=== PATIENT | male | born 1950 | race Caucasian/White ===

== ENCOUNTER 2018-06-08 20:33 | Inpatient (IN) | payer MEDICARE, OTHER, SELFPAY ==
[2018-06-08 20:36] VITALS: BP 148/78; PULSE 87; RESP 16; TEMP 36.7; O2SAT 94
--- NOTE | 2018-06-08 21:35 | ED_ITS ---
HPI - Skin/Abscess/Foreign Bdy General Chief complaint: Skin/Abscess/Foreign Body Stated complaint: RIGHT HAND INFECTION FROM LACERATION Time Seen by Provider: 06/08/18 21:34 Source: patient Mode of arrival: ambulatory Limitations: no limitations History of Present Illness HPI narrative: Patient is a 67-year-old male here for evaluation of right hand infection. He states that a couple days ago he poked his right hand with a screw. He states that afterwards he did have some redness. He states that he did have a [id number] who is a physician and that grmbfhm-[id number] all ordered him Keflex. He states that he has taken 2 days of Keflex. He states the redness around the area has improved however he has now more swelling in his hand and also the back of his hand he thinks that his forearm has become red. No fevers. Does have some decreased range of motion to his thumb but he thinks this is secondary to the swelling. He states that earlier today he was able to express a significant amount of pus from the area. Related Data Home Medications Medication Instructions Recorded Confirmed aspirin 81 mg PO QDAY #0 05/01/17 06/08/18 insulin regular human [Humulin R 0 unit SQ #0 05/01/17 Regular U-100 Insuln] metformin [Glucophage] 500 mg PO BIDCC #0 05/01/17 simvastatin 20 mg PO HS #0 05/01/17 Allergies Allergy/AdvReac Type Severity Reaction Status Date / Time No Known Drug Allergies Allergy Unknown Verified 06/08/18 20:43 [NO KNOWN DRUG ALLERGIES] Review of Systems Constitutional Denies fever(s) Cardiovascular Denies chest pain and Denies dyspnea Respiratory Denies dyspnea Gastrointestinal Gastrointestinal: Denies abdominal pain, Denies nausea and Denies vomiting Musculoskeletal Denies myalgias and Denies arthralgias Comments: Decreased range of motion to right thumb secondary to swelling Integumentary/Breasts Comments: Redness to the palm of his right hand also the back of his right hand and the inside aspect of his right forearm Neurologic Comments: No numbness or tingling in the right hand Hematologic/Lymphatic Denies easy bleeding and Denies easy bruising FOR[facility]LY [facility] Medical History Diabetes (Acute) Surgical History No pertinent past surgical history (Acute) Social History household members: spouse Smoking Status: Never smoker Exam Initial Vital Signs Initial Vital Signs: Vital Signs Temperature 98.1 F 06/08/18 20:36 Pulse Rate 87 06/08/18 20:36 Respiratory Rate 16 06/08/18 20:36 Blood Pressure 148/78 H 06/08/18 20:36 Pulse Oximetry 94 06/08/18 20:36 Const General: cooperative, healthy appearing, comfortable, well developed, well groomed and No acute distress Orientation: alert, awake and oriented x3 HENMT Head: normal to inspection and normocephalic Resp Effort & Inspection: normal respiratory effort Cardio Rate: regular rate Skin Other: Patient with a 1/2 cm round area on the palmar aspect thenar eminence of the right hand consistent with his puncture wound. He does have surrounding erythema for approximately 2 cm. This has improved from a line that was drawn 2 days ago by the pharmacist. Patient also with swelling to the right hand. Does have redness on the dorsum aspect of his right hand on the radial aspect. He also has redness extending proximal to the wrist to mid forearm on the volar aspect. Neuro General: alert, awake and oriented x3 Sensory Exam: no sensory deficits noted Other: Sensation intact to light touch right hand Extrem Other: Patient with swelling to the base of the thumb of the right hand both on the palmar aspect and also on the dorsal aspect. Decreased range of motion at the MCP joint of the right thumb however not painful with movement. No IP joint pain with movement of the right thumb. The rest of his fingers are unremarkable. Full range of motion of the right wrist without pain. Right elbow unremarkable. Psych Appearance: grossly normal and well kempt Course Orders Ordered: ED Orders 06/08/18 21:43 XR hand RT min 3V Stat 06/08/18 22:30 Basic Metabolic Panel Stat C-Reactive Protein Quant Stat Complete Blood Count AUTO DIFF Stat Erythrocyte Sedimentation Rate Stat Lactate (Lactic Acid) Stat 06/08/18 22:33 Consult to Physician Routine 06/08/18 23:15 Wound Culture and Gram Stain Stat Wound Culture and Gram Stain Stat Morphine Sulfate (Morphine) 2 mg IV Q4HR PRN PRN Reason: Pain, Mild (1-3) Ondansetron HCl (Zofran) 4 mg IV Q4HR PRN PRN Reason: Nausea And Vomiting Discontinued Medications Piperacillin/Tazobactam/Dextrose (Zosyn) 3.375 gm in 50 mls @ 100 mls/hr IV NOW ONE Stop: 06/08/18 22:16 Last Admin: 06/08/18 23:16 Dose: Vancomycin HCl/Dextrose (Vancomycin) 1,000 mg in 200 mls @ 200 mls/hr IV NOW ONE Stop: 06/08/18 22:46 Last Admin: 06/08/18 23:41 Dose: 200 mls/hr Vital Signs - 8 hr 06/08/18 20:36 06/08/18 22:08 06/08/18 22:45 Temperature 98.1 F Pulse Rate 87 82 74 Respiratory Rate 16 15 16 Blood Pressure 148/78 H Blood Pressure [Left Arm] 147/73 H 146/72 H Pulse Oximetry 94 95 94 06/09/18 00:03 Temperature 98.1 F Pulse Rate 77 Respiratory Rate 18 Blood Pressure 151/85 H Blood Pressure [Left Arm] Pulse Oximetry 94 MDM - Skin/Abscess/Foreign Bdy Lab Data Attestation: I reviewed the patient's lab results. Result diagrams: 06/08/18 22:30 06/08/18 22:30 Lab Results 06/08/18 06/08/18 06/08/18 Range/Units 22:30 22:30 22:30 WBC 12.3 H (4.5-11.0) X10^3/uL RBC 4.78 (4.5-5.9) X10^6/uL Hgb 14.8 (13.5-17.5) g/dL Hct 42.9 (41-53) % MCV 89.9 (80-100) fL MCH 31.1 (26-34) PG MCHC 34.6 (30-36) % RDW 13.5 (11.6-14.8) % Plt Count 218 (150-400) X10^3/uL Neut % (Auto) 76.5 H (50-75) % Lymph % (Auto) 11.8 L (25-40) % [place] % (Auto) 9.5 (3-14) % Eos % (Auto) 1.6 L (2-4) % Baso % (Auto) 0.6 (0-2) % Neut # (Auto) 9400 H (5479-3921) /uL ESR 18 H (0-15) MM/HR Sodium 143 (137-145) mmol/L Potassium 5.0 (3.4-5.1) mmol/L Chloride 105 (98-107) mmol/L Carbon Dioxide 27 (22-32) mmol/L BUN 19 (9-20) mg/dL Creatinine 0.90 (0.66-1.25) mg/dL Estimated GFR > 60.0 (>60) mL/min BUN/Creatinine Ratio 21.1 (6-22) Glucose 216 H (80-110) mg/dL Lactate 2.0 (0.7-2.1) mmol/L Calcium 9.7 (8.4-10.2) mg/dL C-Reactive Protein (<1.0) mg/dL 06/08/18 Range/Units 22:30 WBC (4.5-11.0) X10^3/uL RBC (4.5-5.9) X10^6/uL Hgb (13.5-17.5) g/dL Hct (41-53) % MCV (80-100) fL MCH (26-34) PG MCHC (30-36) % RDW (11.6-14.8) % Plt Count (150-400) X10^3/uL Neut % (Auto) (50-75) % Lymph % (Auto) (25-40) % [place] % (Auto) (3-14) % Eos % (Auto) (2-4) % Baso % (Auto) (0-2) % Neut # (Auto) (2342-9867) /uL ESR (0-15) MM/HR Sodium (137-145) mmol/L Potassium (3.4-5.1) mmol/L Chloride (98-107) mmol/L Carbon Dioxide (22-32) mmol/L BUN (9-20) mg/dL Creatinine (0.66-1.25) mg/dL Estimated GFR (>60) mL/min BUN/Creatinine Ratio (6-22) Glucose (80-110) mg/dL Lactate (0.7-2.1) mmol/L Calcium (8.4-10.2) mg/dL C-Reactive Protein 6.0 H (<1.0) mg/dL Imaging Data X-ray hand: Attestation: I personally reviewed and interpreted this imaging study as follows: My impression: No fractures, no dislocations, does have a punctate superficial foreign body at the base of the thumb MDM Narrative Medical decision making narrative: Patient has been on Keflex for the past 2 days. He is well-appearing however does have an elevated white blood cell count. The redness that was outlined 2 days ago seems to have improved however does have swelling and also redness to the back of the right hand and extending proximal forearm. His physical exam is not consistent with a septic joint. Does have a punctate foreign body on the x-ray. I feel that exploring the wound to try to find this would cause more damage given the size of this foreign body. I was able to express a small amount of purulent material however the patient states that he was able to express a significant amount of purulent material earlier today. Given the fact that the patient is an insulin- dependent diabetic, symptoms seem to have been worsening over the past 2 days despite his oral Keflex and the worsening of the redness I feel that admission to the hospital for IV antibiotics is warranted. I discussed the case with Dr. Beth who accepts the patient. After discussion we will give the patient vancomycin IV here in the ER. I discussed the diagnosis with the patient. I discussed the plan to admit him to the hospital with the patient. He and his both expressed understanding and agreement with plan. Discharge Plan Departure Patient Disposition: Admitted As Inpatient Clinical Impression: Cellulitis Discharge Date/Time: 06/08/18 23:05 Interventions: ED Discharge Assessment Last Done: 06/08/18 23:00 Admit Date/Time: 06/08/18 22:36 Admit Provider: Otilio Beth
--- NOTE | 2018-06-08 21:43 | DI.RAD.S_ITS ---
PROCEDURE: XR HAND RT MIN 3V INDICATIONS: right hand infection TECHNIQUE: 3 views of the hand(s) acquired. COMPARISON: None. FINDINGS: Bones: No fractures or dislocations. Carpal bones are normally aligned. No suspicious bony lesions. Soft tissues: A punctate radiopaque metallic foreign body is present within the soft tissues of the thenar eminence. There is diffuse soft tissue swelling of the hand. IMPRESSION: Punctate radiopaque foreign body within the thenar eminence soft tissues and diffuse soft tissue swelling. No fracture or dislocation. Dictated by: Jennifer Everett M.D. on 06/09/2018 at 7:03 Approved by: Jennifer Everett M.D. on 06/09/2018 at 7:11
[2018-06-08 22:08] VITALS: BP 147/73; PULSE 82; RESP 15; O2SAT 95
[2018-06-08 22:44] LABS: Add Manual Diff / Slide Review NO; Basophils Percent Auto 0.6 % (0-2); Eosinophils Percent Auto 1.6 % (2-4); Hematocrit 42.9 % (41-53); Hemoglobin 14.8 g/dL (13.5-17.5); Lymphocytes Percent Auto 11.8 % (25-40); Mean Corpuscular HGB Conc 34.6 % (30-36); Mean Corpuscular Hemoglobin 31.1 PG (26-34); Mean Corpuscular Volume 89.9 fL (80-100); Monocytes Percent Auto 9.5 % (3-14); Neutrophils Absolute Auto 9400 /uL (3000-5900); Neutrophils Percent Auto 76.5 % (50-75); Platelet Count 218 X10^3/uL (150-400); Red Blood Cell Count 4.78 X10^6/uL (4.5-5.9); Red Cell Distribution Width 13.5 % (11.6-14.8); White Blood Cell Count 12.3 X10^3/uL (4.5-11.0)
[2018-06-08 22:45] VITALS: BP 146/72; PULSE 74; RESP 16; O2SAT 94
[2018-06-08 22:55] LABS: BUN Creatinine Ratio 21.1 (6-22); Blood Urea Nitrogen 19 mg/dL (9-20); Calcium 9.7 mg/dL (8.4-10.2); Carbon Dioxide 27 mmol/L (22-32); Chloride 105 mmol/L (98-107); Estimated Glomerular Filt Rate > 60.0 mL/min (>60); Glucose 216 mg/dL (80-110); HEMOLYSIS 38 (0-50); Sodium 143 mmol/L (137-145)
[2018-06-08 23:00] LABS: Erythrocyte Sedimentation Rate 18 MM/HR (0-15)
--- NOTE | 2018-06-08 23:21 | PC.NURSE ---
Pt to acute care from ER. Transferred via wheelchair. Ambulated to bathroom/bed. Steady gait. Right hand swollen, wound/red area previously marked. Wound culture collected/sent. Oriented to room/call light. Report given to NELLIE escalante RN.
[2018-06-08] MEDS: VANCOMYCIN 1,000 MG/200 ML FROZ.PIGGY 200 MG IV (23:41)
[2018-06-08 23:43] VITALS: BMI 31.2
[2018-06-09] VITALS (16 sets, daily range): BP systolic 123–155; BP diastolic 76–88; PULSE 60–84; RESP 12–97; TEMP 36.1–37.1; O2SAT 20–96; BMI 31.2
--- NOTE | 2018-06-09 01:26 | PC.NURSE ---
Pt. admitted from ER for Rt. hand cellulitis. wound culture collected by evening RN & Rudy infused after wound culture send to the lab. Pt. denies any pain to his rt. hand. Pt. oriented to his room, instructed to call for assistance if he needed to get up OOB. Call light within reached. Savanna rooming in & sleeping in the day bed. Will cont. POC & monitor.
[2018-06-09] MEDS: SODIUM CHLORIDE 0.9% FLUSH 10 ML IV ×2 (01:30→08:59)
--- NOTE | 2018-06-09 06:20 | PC.NURSE ---
Wound gram stain + cocci, placed pt. on isolation. But was not able to educate them about new lab. results & isolation precaution. Both patient & spouse are sound asleep. Will report to day RN.
--- NOTE | 2018-06-09 08:50 | P.CONS_ITS ---
History of Present Illness Date Patient Seen: 06/09/18 Time Patient Seen: 08:41 Chief complaint: RIGHT HAND INFECTION FROM LACERATION Reason for consult: Right hand infection Requesting provider: Otilio Beth Narrative: 67-year-old male with a right thumb infection. He was working on a deck and had a screw go into his right thenar eminence on Sunday. He was having some redness and his [id number] who is a physician put him on Keflex 2 days ago. Since then the swelling has gone down but he is now able to squeeze it and express pus. He came in the hospital because of this. [facility] Medical History Diabetes (Acute) Hyperlipidemia (Acute) Surgical History No pertinent past surgical history (Acute) Social History household members: spouse Smoking Status: Never smoker Meds Home Medications Medication Instructions Recorded Confirmed Type aspirin 81 mg PO QDAY #0 05/01/17 06/08/18 History insulin regular human [Humulin R 40 units SQ QD-BID #0 05/01/17 06/09/18 History Regular U-100 Insuln] metformin [Glucophage] 500 mg PO BIDCC #0 05/01/17 06/09/18 History simvastatin 20 mg PO HS #0 05/01/17 06/09/18 History Allergies Allergy/AdvReac Type Severity Reaction Status Date / Time No Known Drug Allergies Allergy Unknown Verified 06/08/18 20:43 [NO KNOWN DRUG ALLERGIES] Review of Systems Constitutional Constitutional: Denies chills and Denies fever(s) Cardiovascular Cardiovascular: Denies chest pain Respiratory Respiratory: Denies cough Gastrointestinal Gastrointestinal: Denies abdominal pain Musculoskeletal Musculoskeletal: Reports system reviewed; no additional complaints, except as documented Exam Vital Signs (past 8 hours): - 06/09/18 05:00 Temperature 97.6 F Pulse Rate 73 Respiratory Rate 16 Blood Pressure 136/79 Pulse Oximetry 95 Oxygen Delivery Method Room Air Const Orientation: alert and oriented x3 Extrem Other: Right hand swelling and erythema around the thenar eminence. There is a marker drawing from 2 days ago that is approximately 7 x 5 cm in size. The current redness and swelling is approximately 3 cm in the middle of this. Deep redness and swelling and tenderness in the middle for approximately 2 cm. Able to express purulence with squeezing out of puncture wound in the middle.. Pain- free range of motion of the thumb and fingers. Good capillary refill in the fingers. Objective Imaging Right hand x-ray: My impression: Thenar eminence swelling. Small 1 mm foreign body in this region. Labs Result Diagrams: 06/08/18 22:30 06/08/18 22:30 Labs: Laboratory Results - last 24 hr 06/08/18 06/08/18 06/08/18 22:30 22:30 22:30 WBC 12.3 H RBC 4.78 Hgb 14.8 Hct 42.9 MCV 89.9 MCH 31.1 MCHC 34.6 RDW 13.5 Plt Count 218 Neut % (Auto) 76.5 H Lymph % (Auto) 11.8 L [place] % (Auto) 9.5 Eos % (Auto) 1.6 L Baso % (Auto) 0.6 Neut # (Auto) 9400 H ESR 18 H Sodium 143 Potassium 5.0 Chloride 105 Carbon Dioxide 27 BUN 19 Creatinine 0.90 Estimated GFR > 60.0 BUN/Creatinine Ratio 21.1 Glucose 216 H Lactate 2.0 Calcium 9.7 C-Reactive Protein 06/08/18 22:30 WBC RBC Hgb Hct MCV MCH MCHC RDW Plt Count Neut % (Auto) Lymph % (Auto) [place] % (Auto) Eos % (Auto) Baso % (Auto) Neut # (Auto) ESR Sodium Potassium Chloride Carbon Dioxide BUN Creatinine Estimated GFR BUN/Creatinine Ratio Glucose Lactate Calcium C-Reactive Protein 6.0 H Assessment & Plan (1) Abscess of hand, right: Current visit: Yes Status: Acute Plan: Assessment/Plan Narrative: Looks likes most of the cellulitis is improving but he has a distinct area with an abscess over the thenar eminence that is actively draining. I recommend surgical debridement of this. He was hoping we could perhaps just mireille it in the room and let it drain out. However, I explained that if this tracks deep or proximally or we get into bleeding then I will need more control in the operating room. Unfortunately, he ate breakfast and we will need to wait for an 8 hr n.p.o. status. I explained to him that as he is not septic this is certainly something that can wait till later on in the day. He is on IV antibiotics currently. Risks and benefits of surgery were discussed including but not limited to medical with general anesthetic, ongoing infection, bleeding, scarring, blood vessel or nerve or tendon or muscle injury,, need for further surgery. We will plan on irrigation debridement of the right thenar eminence this this afternoon.
--- NOTE | 2018-06-09 08:54 | PM.HP.1 ---
History of Present Illness Date Patient Seen: 06/09/18 Time Patient Seen: 08:54 Chief complaint: RIGHT HAND INFECTION FROM LACERATION Narrative: Patient is a 67-year-old diabetic male who came into the emergency department after a puncture wound with a screw nail on June 05. He was working on his deck and punctured his right hand at the base of the thumb. The following morning he noticed swelling and redness in the area. He was also able to express some pus from the open wound. His [id number] prescribed Keflex which he started 2 days ago. He has not had fever or chills. However he has noticed progressive swelling and redness in the area. No fever or chills. The hand x-ray did show tiny retained foreign body in the thenar eminence. He denies history of heart problems or respiratory issues. Patient History Medical History Diabetes (Chronic) Hyperlipidemia (Chronic) Surgical History No pertinent past surgical history (Acute) Family & Social History Family History: Reviewed 06/09/18 by Otilio Beth MD Social History: household members spouse Prior Living Arrangements House Safety & Behavioral: Feels Safe in Current Yes Environment Been Physically Hurt or No Threatened By a Person Suicidal Ideation Description None Suicide Plan Description No Plan Tobacco & Substance use: Smoking Status Never smoker alcohol intake frequency a few times a month Substance Use Type does not use Meds Home Medications Medication Instructions Recorded Confirmed Type aspirin 81 mg PO QDAY #0 05/01/17 06/08/18 History metformin [Glucophage] 500 mg PO BIDCC #0 05/01/17 06/09/18 History simvastatin 20 mg PO HS #0 05/01/17 06/09/18 History insulin NPH and regular human 40 unit SUBCUT BIDWM 06/09/18 06/09/18 History [Humulin 70/30 U-100 Insulin] Allergies Allergy/AdvReac Type Severity Reaction Status Date / Time No Known Drug Allergies Allergy Unknown Verified 06/08/18 20:43 [NO KNOWN DRUG ALLERGIES] Review of Systems Review of Systems All systems reviewed & are unremarkable except as noted in HPI and below Exam Vital Signs (past 8 hours): - 06/09/18 05:00 06/09/18 07:35 Temperature 97.6 F 98.1 F Pulse Rate 73 72 Respiratory Rate 16 16 Blood Pressure 136/79 139/85 Pulse Oximetry 95 96 Oxygen Delivery Method Room Air Narrative Exam Narrative: GENERAL: This is an alert well-nourished, well-developed patient, in no apparent distress. HEAD: Atraumatic. Normocephalic. EYES: Pupils equal, round and reactive. Extraocular motions intact. No scleral icterus. No injection or drainage. OROPHARYNX: moist mucosa NECK: Trachea midline. No JVD or lymphadenopathy. CARDIOVASCULAR: Regular rate and rhythm without murmurs, gallops, or rubs. RESPIRATORY: Clear to auscultation bilaterally. GASTROINTESTINAL: Abdomen nondistended, soft, non-tender. No hepato-splenomegaly. EXTREMITIES: No pretibial edema. NEUROLOGICAL: Alert, well oriented, speech is intact, normal bilateral upper and lower extremity strength SKIN/musculoskeletal: There is localized swelling and fluctuance of the right thenar eminence. Pus is easily expressed out of small central opening in this area. There is no limitation of passive or active flexion of the fingers or thumb. No extension of redness to the wrist or other joints. Objective Imaging Right hand x-ray: Radiologist's impression: IMPRESSION: Punctate radiopaque foreign body within the thenar eminence soft tissues and diffuse soft tissue swelling. No fracture or dislocation. Labs Result Diagrams: 06/08/18 22:30 06/08/18 22:30 Labs: Laboratory Results - last 24 hr 06/08/18 06/08/18 06/08/18 22:30 22:30 22:30 WBC 12.3 H RBC 4.78 Hgb 14.8 Hct 42.9 MCV 89.9 MCH 31.1 MCHC 34.6 RDW 13.5 Plt Count 218 Neut % (Auto) 76.5 H Lymph % (Auto) 11.8 L [place] % (Auto) 9.5 Eos % (Auto) 1.6 L Baso % (Auto) 0.6 Neut # (Auto) 9400 H ESR 18 H Sodium 143 Potassium 5.0 Chloride 105 Carbon Dioxide 27 BUN 19 Creatinine 0.90 Estimated GFR > 60.0 BUN/Creatinine Ratio 21.1 Glucose 216 H Lactate 2.0 Calcium 9.7 C-Reactive Protein 06/08/18 22:30 WBC RBC Hgb Hct MCV MCH MCHC RDW Plt Count Neut % (Auto) Lymph % (Auto) [place] % (Auto) Eos % (Auto) Baso % (Auto) Neut # (Auto) ESR Sodium Potassium Chloride Carbon Dioxide BUN Creatinine Estimated GFR BUN/Creatinine Ratio Glucose Lactate Calcium C-Reactive Protein 6.0 H Assessment & Plan Plan: Assessment/Plan Narrative: 1. Right hand cellulitis/abscess: Patient was started on IV vancomycin overnight. Wound culture growing Gram-positive cocci. Dr. Barboza assessed patient and recommending incision and drainage of the abscess which is planned for this afternoon. Patient has no history of cardiac issues and is low risk for surgery. Continue vancomycin pending final culture results. 2. Diabetes, insulin requiring: Glucose 200 range on admission and this a.m.. Continue patient on insulin equivocal into his home dosing with addition of NovoLog sliding-scale. Continue metformin with meals. Continue his cholesterol drug and low-dose aspirin. Quality VTE Deep Vein Thrombosis/Pulmonary Embolism Present on Admission: No
--- NOTE | 2018-06-09 09:04 | P.HP_ITS ---
History of Present Illness Date Patient Seen: 06/09/18 Time Patient Seen: 08:54 Chief complaint: RIGHT HAND INFECTION FROM LACERATION Narrative: Patient is a 67-year-old diabetic male who came into the emergency department after a puncture wound with a screw nail on June 05. He was working on his deck and punctured his right hand at the base of the thumb. The following morning he noticed swelling and redness in the area. He was also able to express some pus from the open wound. His ceavifr-pe-kxe prescribed Keflex which he started 2 days ago. He has not had fever or chills. However he has noticed progressive swelling and redness in the area. No fever or chills. The hand x-ray did show tiny retained foreign body in the thenar eminence. He denies history of heart problems or respiratory issues. Patient History Medical History Diabetes (Chronic) Hyperlipidemia (Chronic) Surgical History No pertinent past surgical history (Acute) Family & Social History Family History: Reviewed 06/09/18 by Otilio Beth MD Social History: household members spouse Prior Living Arrangements House Safety & Behavioral: Feels Safe in Current Yes Environment Been Physically Hurt or No Threatened By a Person Suicidal Ideation Description None Suicide Plan Description No Plan Tobacco & Substance use: Smoking Status Never smoker alcohol intake frequency a few times a month Substance Use Type does not use Meds Home Medications Medication Instructions Recorded Confirmed Type aspirin 81 mg PO QDAY #0 05/01/17 06/08/18 History metformin [Glucophage] 500 mg PO BIDCC #0 05/01/17 06/09/18 History simvastatin 20 mg PO HS #0 05/01/17 06/09/18 History insulin NPH and regular human 40 unit SUBCUT BIDWM 06/09/18 06/09/18 History [Humulin 70/30 U-100 Insulin] Allergies Allergy/AdvReac Type Severity Reaction Status Date / Time No Known Drug Allergies Allergy Unknown Verified 06/08/18 20:43 [NO KNOWN DRUG ALLERGIES] Review of Systems Review of Systems All systems reviewed & are unremarkable except as noted in HPI and below Exam Vital Signs (past 8 hours): - 06/09/18 05:00 06/09/18 07:35 Temperature 97.6 F 98.1 F Pulse Rate 73 72 Respiratory Rate 16 16 Blood Pressure 136/79 139/85 Pulse Oximetry 95 96 Oxygen Delivery Method Room Air Narrative Exam Narrative: GENERAL: This is an alert well-nourished, well-developed patient , in no apparent distress. HEAD: Atraumatic. Normocephalic. EYES: Pupils equal, round and reactive. Extraocular motions intact. No scleral icterus. No injection or drainage. OROPHARYNX: moist mucosa NECK: Trachea midline. No JVD or lymphadenopathy. CARDIOVASCULAR: Regular rate and rhythm without murmurs, gallops, or rubs. RESPIRATORY: Clear to auscultation bilaterally. GASTROINTESTINAL: Abdomen nondistended, soft, non-tender. No hepato- splenomegaly. EXTREMITIES: No pretibial edema. NEUROLOGICAL: Alert, well oriented, speech is intact, normal bilateral upper and lower extremity strength SKIN/musculoskeletal: There is localized swelling and fluctuance of the right thenar eminence. Pus is easily expressed out of small central opening in this area. There is no limitation of passive or active flexion of the fingers or thumb. No extension of redness to the wrist or other joints. Objective Imaging Right hand x-ray: Radiologist's impression: IMPRESSION: Punctate radiopaque foreign body within the thenar eminence soft tissues and diffuse soft tissue swelling. No fracture or dislocation. Labs Result Diagrams: 06/08/18 22:30 06/08/18 22:30 Labs: Laboratory Results - last 24 hr 06/08/18 06/08/18 06/08/18 22:30 22:30 22:30 WBC 12.3 H RBC 4.78 Hgb 14.8 Hct 42.9 MCV 89.9 MCH 31.1 MCHC 34.6 RDW 13.5 Plt Count 218 Neut % (Auto) 76.5 H Lymph % (Auto) 11.8 L [place] % (Auto) 9.5 Eos % (Auto) 1.6 L Baso % (Auto) 0.6 Neut # (Auto) 9400 H ESR 18 H Sodium 143 Potassium 5.0 Chloride 105 Carbon Dioxide 27 BUN 19 Creatinine 0.90 Estimated GFR > 60.0 BUN/Creatinine Ratio 21.1 Glucose 216 H Lactate 2.0 Calcium 9.7 C-Reactive Protein 06/08/18 22:30 WBC RBC Hgb Hct MCV MCH MCHC RDW Plt Count Neut % (Auto) Lymph % (Auto) [place] % (Auto) Eos % (Auto) Baso % (Auto) Neut # (Auto) ESR Sodium Potassium Chloride Carbon Dioxide BUN Creatinine Estimated GFR BUN/Creatinine Ratio Glucose Lactate Calcium C-Reactive Protein 6.0 H Assessment & Plan Plan: Assessment/Plan Narrative: 1. Right hand cellulitis/abscess: Patient was started on IV vancomycin overnight. Wound culture growing Gram-positive cocci. Dr. Barboza assessed patient and recommending incision and drainage of the abscess which is planned for this afternoon. Patient has no history of cardiac issues and is low risk for surgery. Continue vancomycin pending final culture results. 2. Diabetes, insulin requiring: Glucose 200 range on admission and this a.m.. Continue patient on insulin equivocal into his home dosing with addition of NovoLog sliding-scale. Continue metformin with meals. Continue his cholesterol drug and low-dose aspirin. Quality VTE Deep Vein Thrombosis/Pulmonary Embolism Present on Admission: No
[2018-06-09] MEDS: VANCOMYCIN 1,500 MG in SODIUM CHLORIDE 0.9% 500 ML 333.333 ML IV ×2 (11:08→21:29)
[2018-06-09] MEDS: INSULIN GLARGINE 100 UNIT/ML 3ML PEN 30 UNIT SUBCUT (11:09)
--- NOTE | 2018-06-09 13:25 | PC.NURSE ---
day shift pt denies pain this shift. wound on hand is draining purulent serosang fluid. 4x4 dressing applied and secured with kerlix. vanco infusing without issue. pt NPO after breakfast this AM. started lantus insulin, 30 units given to pt as ordered. present at bedside. hourly rounding provided, call light within reach.
[2018-06-09] MEDS: LACTATED RINGERS 1,000 ML 42 ML IV (16:14)
--- NOTE | 2018-06-09 16:36 | PC.NURSE ---
Addendum entered by Hrotensia Ocampo R.N. 06/09/18 19:20: 1830- pt arrived back to room. vss. denies pain, and nausea. given pudding, and tolerated well. pt brought in [facility]. pt ate, will check bs at hs. Pt ambulatory, no dizziness- steady gait. encouraged to call if needing assistance. fluids started. will continue to monitor pt for safety. Original Note: Addendum entered by Hortensia Ocampo R.N. 06/09/18 16:39: belongings from pt given to prior to pt being taken to surgery. Original Note: Assumed care of pt from outgoing shift at 1500- Pt at bedside, pt compliant with nursing assessment, discussed surgery with pt. stephy from surgery in to get pt at 1555 and pt taken downstairs. went with. discussed isolation, discussed possible outcomes, pt ambulates steady gait in room, will continue to monitor pt for safety.
--- NOTE | 2018-06-09 17:04 | PM.PREOP ---
Pre-operative Note Interval Note Pre-op Check: Yes History & Physical Reviewed by Physician and Yes Exam Performed Changes: No
[2018-06-09] MEDS: CEFAZOLIN 2 GM/100 ML FROZ.PIGGY IV (17:22)
--- NOTE | 2018-06-09 17:48 | SUR.OPER ---
Supine on padded OR bed, head on pillow, left arm secured on padded arm boards at <90 degrees abduction, legs uncrossed, safety belt at thigh, tape over blanket over lower legs. right arm on sterile field
--- NOTE | 2018-06-09 18:02 | PM.OP.1 ---
Operative Date/Time/Diagnoses Date of procedure: 06/09/18 Time of procedure: 18:02 Pre-op diagnosis: Right hand puncture wound infection to thenar eminence Right hand abscess Post-op diagnosis: same Procedure & Clinicians Procedure: Irrigation and excisional debridement of right thenar eminence abscess Same procedure as scheduled: Yes Indications: 67-year-old male with a puncture wound to the right hand. He was admitted with draining pus. It was felt that he would require operative debridement. Risks and benefits of surgery were discussed and appropriate consent obtained. Surgeon: Alonso Barboza Click Yes if Unassisted: No Anesthesia Type: General Operative Notes Findings: None Closure Type: primary Specimen(s): other (Wound culture from hand) Estimated Blood Loss (mL): 5 Procedure in detail: Patient brought to the operating room and intubated on the table. Attention was turned towards the well-marked right head. A time-out was performed. Antibiotics were held. The right arm was prepped and draped in standard sterile fashion. A tourniquet had been placed on the arm but was never inflated. Marcaine was used for a radial wheal and some superficial block. We went along the skin fold made 2 cm incision over his draining open area. Purulent material was cultured and sent to microbiology. We then bluntly dissected and there was a deep cavity tracking 2 cm proximally and 1 cm deep. We bluntly spread and used a curette for sharp debridement through the muscle tissue and copiously irrigated. This did not appear to track distally. We brought in the mini C-arm to try to see if we could easily get the small foreign body. We advanced the hemostat but the foreign body sitting right where the neurovascular bundle would be and I did not feel this was a safe area to try to blindly remove the small particle and we elected to leave it. The wound was then copiously irrigated again. Iodoform gauze was placed in the wound. Nylon was used to loosely reapproximate the skin. Sterile dressing was placed. He was then extubated brought to recovery with no complications. Complications: none Condition: stable Disposition: PACU Plan for aftercare: Inpatient. Will need IV antibiotics. Awaiting culture results for final antibiotics. Plan to remove his packing on Sunday and probably discharge home on oral antibiotics.
[2018-06-09] MEDS: BUPIVACAINE 0.5% (PF) VIAL 30 ML INJ (18:09)
[2018-06-09] MEDS: SODIUM CHLORIDE 0.9% 1,000 ML, GENTAMICIN 80 MG IRR (18:09)
--- NOTE | 2018-06-09 18:14 | SUR.PHASEI ---
No glucose check need per Dr. Barboza
--- NOTE | 2018-06-09 18:18 | SUR.PHASEI ---
Report called to Az Thomson.
--- NOTE | 2018-06-09 18:39 | SUR.PHASEI ---
Pt transferred to the floor. Report to Alix. Ruth cdi. VS stable. IV saline locked. Spouse present
[2018-06-09] MEDS: LACTATED RINGERS 1,000 ML 125 ML IV (18:56)
[2018-06-09] MEDS: SIMVASTATIN 20 MG TABLET PO (21:29)
[2018-06-09] MEDS: DOCUSATE 100 MG CAPSULE PO (21:32)
--- NOTE | 2018-06-09 22:26 | PC.NURSE ---
Pt arrived back to floor at 1830. vss. denies pain. given chocolate pudding and pt ate without nausea. Pt's got [employer] for him. pt complaint with all assessments. PT uses call light. ambulatory in , able to manipulate IV pole without difficulty. will continue to monitor pt for safety.
[2018-06-10 05:00] VITALS: BP 136/89; PULSE 69; RESP 16; TEMP 36.5; O2SAT 92
[2018-06-10 05:49] LABS: Hemoglobin 13.9 g/dL (13.5-17.5); Mean Corpuscular HGB Conc 34.8 % (30-36); Mean Corpuscular Hemoglobin 31.5 PG (26-34); Mean Corpuscular Volume 90.4 fL (80-100); Platelet Count 229 X10^3/uL (150-400); Red Blood Cell Count 4.42 X10^6/uL (4.5-5.9); Red Cell Distribution Width 13.6 % (11.6-14.8); White Blood Cell Count 8.9 X10^3/uL (4.5-11.0)
--- NOTE | 2018-06-10 07:40 | PM.PNPO.1 ---
Subjective Date Patient Seen: 06/10/18 Time Patient Seen: 07:40 Interval history: Comfortable, better than before. Exam Vital Signs (past 8 hours): - 06/10/18 05:00 Temperature 97.7 F Pulse Rate 69 Respiratory Rate 16 Blood Pressure 136/89 Pulse Oximetry 92 Oxygen Delivery Method Room Air Oxygen Flow Rate 0 Const Orientation: alert and oriented x3 Extrem Other: R hand -dressing minimal dry drainage. good cap refill, easily wiggles fingers/thumb Objective Labs Result Diagrams: 06/10/18 05:23 06/08/18 22:30 Labs: Laboratory Results - last 24 hr 06/10/18 05:23 WBC 8.9 RBC 4.42 L Hgb 13.9 Hct 40.0 L MCV 90.4 MCH 31.5 MCHC 34.8 RDW 13.6 Plt Count 229 cx- staph aureus, sensitivities tomorrow Assessment & Plan Post-op Postoperative Procedures Operation Date: 06/09/18 16:00 Actual Procedures Side Surgeon p Incision and Drainage Right Thumb Right Alonso Barboza MD Doing well after washout of infected hand. Continue IV abx. Waiting on final cultures. Plan to remove packing tomorrow and probably DC on oral abx. Continue IV for now. Glucose elevated - expected with infection. back on normal insulin dosing as well. Quality VTE Deep Vein Thrombosis/Pulmonary Embolism Present on Admission: No
[2018-06-10 07:45] VITALS: BP 137/88; PULSE 70; RESP 16; TEMP 36.5; O2SAT 92
--- NOTE | 2018-06-10 09:00 | PT.IIE ---
Current Diagnoses Cutaneous abscess of right hand (06/08/18) Surgery Performed Operation Date: 06/09/18 16:00 Actual Procedures p Incision and Drainage Right Thumb(Right) - Alonso Barboza MD Surgical History (Last Reviewed 06/09/18 @ 08:57 by Otilio Beth MD) No pertinent past surgical history (Acute) Medical History (Last Reviewed 06/09/18 @ 08:57 by Otilio Beth MD) Diabetes (Chronic) Hyperlipidemia (Chronic) Physical Therapy Inpatient Evaluation/Re-Eval Medical Review Prior Functional Status Medical History Reviewed Yes Diet/Fluid Consistency Regular Communication no known deficits Mobility and Gait completely independent Activities of Daily Living and IADL's completely independent Social History Household Members spouse Living Arrangements House Physical Therapy Current Condition Current Condition Evaluation Date 06/10/18 Treatment Diagnosis R hand I&D of infected puncture wound Onset Date 06/05/18 Subjective Physical Therapy Visit Type Type Initial Evaluation Visit Start Time 08:30 Visit Stop Time 09:00 Total Visit Minutes 30 Physical Therapy Visit Comments Patient Comments Pt has no concerns about his mobility. Patient Goals go home once able PT-Bed Mobility Assessment Supine to Sit Supine to Sit Independent Sit to Supine Sit to Supine Independent Scooting Scooting to Edge of Bed Independent PT-Transfer Assessment Sit to and From Stand Sit to and from Stand Independent Equipment Transfer Assistive Device None Transfers Transfer Destination Bed Chair Transfer Technique walked Transfer Ability Level of Assist Independent Comments Mobility Comments very stable, no signs of LOB or difficulty Gait Assessment Gait Gait Assistance Required: Independent Assistive Devices Assistive Device None Gait Deviations General Gait Pattern Within Normal Limits Comments Gait Comments able to walk independently, also fine to walk and manage the IV pole without LOB or difficulty Stair Climbing Assessment Comments Stair Climbing Comments not formally tested, clinical estimate is ind PT-Balance Assessment Sitting Balance and Reactions Static Sitting Balance Ability Normal Dynamic Sitting Balance Ability Normal Standing Balance and Reactions Static Standing Balance Ability Normal Dynamic Standing Balance Ability Normal Orientation Orientation/Cognition Level of Alertness Alert Orientation Name Age Birthday Month Date Year Day of Week Place Situation Language Function Ability No Deficits Noted Safety Awareness Understands Safety Issues Memory Description No Deficits Noted Gross Range of Motion Upper Extremity ROM Assessment Within Functional Limits Lower Extremity ROM Assessment Within Functional Limits Strength Upper Extremity Strength Assessment Within Functional Limits Lower Extremity Strength Assessment Within Functional Limits Coordination Assessment Gross Coordination Gross Coordination WNL Physical Therapy Treatment Education Education Provided Safety PT Summary Assessment and Plan Potential Rehabilitation Potential Excellent Status of Condition at Evaluation Stable Summary Progress Towards Goals Safe For Discharge Assessment Summary Pt is s/p I&D of R hand for an infected puncture wound. Pt is completely independent with mobility, putting pt at his reported functional baseline. Pt is safe to discharge home once medically ready, has no DME or f/u therapy needs. Pt has no other acute PT goals/ needs, therefore, acute PT will sign off with the anticipation that pt will continue to mobilize with nursing encouragement until discharged from the hospital. Frequency of Treatment Frequency Of Treatment Discharge Recommendations To Nursing Amount of Assist Needed Independent Discharge Recommendations PT Discharge Recommendations Home
[2018-06-10] MEDS: SODIUM CHLORIDE 0.9% FLUSH 10 ML IV ×2 (09:22→21:28)
[2018-06-10] MEDS: ASPIRIN 81 MG TAB PO (09:23)
[2018-06-10] MEDS: METFORMIN HCL 500 MG TABLET PO ×2 (09:23→17:07)
[2018-06-10] MEDS: INSULIN NPH/REG 70-30 100 UNIT/ML 3ML VIAL 40 UNIT SUBCUT ×2 (09:24→17:05)
[2018-06-10] MEDS: DOCUSATE 100 MG CAPSULE PO ×2 (09:24→19:47)
[2018-06-10] MEDS: INSULIN ASPART 100 UNIT/ML INSULN PEN SUBCUT ×3 (09:27→17:04)
[2018-06-10] MEDS: VANCOMYCIN 1,500 MG in SODIUM CHLORIDE 0.9% 500 ML 333.333 ML IV ×2 (09:36→21:28)
[2018-06-10 11:28] VITALS: BP 142/101; PULSE 68; RESP 16; TEMP 36.3; O2SAT 93
--- NOTE | 2018-06-10 13:11 | PM.PN.1 ---
Subjective Date Patient Seen: 06/10/18 Interval history: Patient without complaints status post I and D of right hand abscess yesterday. Wound culture growing Staph aureus. Exam Vital Signs (past 8 hours): - 06/10/18 07:45 06/10/18 11:28 Temperature 97.7 F 97.4 F L Pulse Rate 70 68 Respiratory Rate 16 16 Blood Pressure 137/88 142/101 H Pulse Oximetry 92 93 Oxygen Delivery Method Room Air Oxygen Flow Rate 0 Narrative Exam Narrative: General: Alert, pleasant and cooperative and in no acute distress Extremities: Right hand postop dressing with mild oozing. Distal sensation and capillary refill intact. Objective Labs Result Diagrams: 06/10/18 05:23 06/08/18 22:30 Labs: Laboratory Results - last 24 hr 06/10/18 05:23 WBC 8.9 RBC 4.42 L Hgb 13.9 Hct 40.0 L MCV 90.4 MCH 31.5 MCHC 34.8 RDW 13.6 Plt Count 229 Assessment & Plan Plan: Assessment/Plan Narrative: 1. Right hand cellulitis/abscess: Patient is stable status post I&D by . Continue IV vancomycin for Staph aureus growing in wound culture, final ID pending. Most likely patient will be able to discharge home tomorrow, Sunday, on oral antibiotic. He will need wound packing removed by Ortho prior to discharge. 2. Diabetes, insulin requiring: Glucose remaining 200-250 range probably due to infection. Continue patient on insulin equivalent to his home dosing with addition of NovoLog sliding-scale. Continue metformin with meals. Continue his cholesterol drug and low-dose aspirin. Quality VTE Deep Vein Thrombosis/Pulmonary Embolism Present on Admission: No
[2018-06-10 16:30] VITALS: BP 144/72; PULSE 69; RESP 16; TEMP 36.5; O2SAT 93
[2018-06-10 19:30] VITALS: BP 139/89; PULSE 69; RESP 18; TEMP 36.3; O2SAT 93
[2018-06-10] MEDS: SIMVASTATIN 20 MG TABLET PO (19:47)
--- NOTE | 2018-06-10 19:58 | PC.NURSE ---
Shift note: Antonio resting in bed, rates right hand pain 2, denies need for medication. Took off his own surgical drsg, saying it was itching. Gauze drsg reapplied to right hand, packing still in place. Small amt of sero-sang drainage to old drsg. He asked me can't we pull this out? pointing to IV. I explained rationale for IV and IV Vanco, he is aware that med is ordered for 10 am and 10 pm and that final wound culture should come tomorrow. Ox3 and using call button appropriately. VS stable. CBG tonight 137, HS snack given per his request.
[2018-06-11 01:00] VITALS: BP 121/63; PULSE 61; RESP 18; TEMP 36.6; O2SAT 96
[2018-06-11 05:20] VITALS: BP 132/86; PULSE 63; RESP 16; TEMP 36.5; O2SAT 96
--- NOTE | 2018-06-11 07:31 | P.PN_ITS ---
Subjective Date Patient Seen: 06/11/18 Time Patient Seen: 07:30 Interval history: Doing well. Minimal discomfort Exam Vital Signs (past 8 hours): - 06/11/18 01:00 06/11/18 05:20 Temperature 97.9 F 97.7 F Pulse Rate 61 63 Respiratory Rate 18 16 Blood Pressure 121/63 132/86 Pulse Oximetry 96 96 Oxygen Delivery Method Room Air Oxygen Flow Rate 0 Const Orientation: alert and oriented x3 Extrem Other: Right hand-dressing changed and packing removed. No more erythema. No drainage. Good cap refill distally. Objective Labs Result Diagrams: 06/10/18 05:23 06/08/18 22:30 Labs: Glucose fingerstick up to 248 Culture Staph aureus sensitive to everything except for tetracyclines Assessment & Plan Post-op Postoperative Procedures Operation Date: 06/09/18 16:00 Actual Procedures Side Surgeon p Incision and Drainage Right Thumb Right Alonso Barboza MD he has sensitive Staph aureus. I am fine with sending him home today on Keflex. His glucose is elevated and he will need to do closer monitoring of his blood sugars and managing his diabetes until the infection resolves. He lives in [place] and is going home Sunday. He will follow up with his primary care physician. Quality VTE Deep Vein Thrombosis/Pulmonary Embolism Present on Admission: No
--- NOTE | 2018-06-11 07:33 | PM.DS.1 ---
History of Present Illness Date Patient Seen: 06/11/18 Time Patient Seen: 07:33 Chief complaint: RIGHT HAND INFECTION FROM LACERATION Narrative: 67-year-old male admitted with a right hand abscess Discharge Providers Date of admission: 06/08/18 22:36 Consults: 06/08/18 22:33 Consult to Physician Routine Comment: Consulting Provider: Otilio Beth Reason for consultation: admisson Has provider been notified: Yes 06/09/18 08:24 Consult to Orthopedic Surgery Routine Comment: Consulting Provider: Alonso Barboza Reason for consultation: hand cellulitis, foreign body Has provider been notified: Yes 06/09/18 18:43 Consult to Discharge Planning Routine Comment: Consult to Physical Therapy Evaluate & Treat Comment: Physician Instructions: Evaluate and Treat Consult to Physician Routine Comment: Consulting Provider: Alonso Barboza Reason for consultation: R hand infection Has provider been notified: Yes Consult to Respiratory Therapy Evaluate & Treat Comment: Physician Instructions: Evaluate and treat Discharge provider: Alonso Barboza MD Summary Discharge Diagnosis: Right hand abscess Hospital Course: He was admitted and brought to the operating room on 06/09/2018 where he underwent irrigation debridement of his right hand thenar eminence abscess. He did very well postoperatively. He had his dressing changed and packing removed on postop day 2 and everything looked clean. He grew out pansensitive Staph aureus and will be discharged on Keflex. He lives in [place] and is returning tomorrow and will follow up with his primary care for physician next week. Exam Vital Signs (past 8 hours): - 06/11/18 01:00 06/11/18 05:20 Temperature 97.9 F 97.7 F Pulse Rate 61 63 Respiratory Rate 18 16 Blood Pressure 121/63 132/86 Pulse Oximetry 96 96 Oxygen Delivery Method Room Air Oxygen Flow Rate 0 Const Orientation: alert and oriented x3 Extrem Other: Right hand wound clean dry intact Objective Labs Result Diagrams: 06/10/18 05:23 06/08/18 22:30 Discharge Plan Discharge Plan Patient Disposition: Home Discharge comment: Follow-up with primary care physician in 1 week Discharge Med Rec/Prescriptions Prescriptions: New cephalexin [Keflex] 500 mg capsule 500 mg PO QID Qty: 40 RF: 0 Continue metformin [Glucophage] 500 MG tablet 500 mg PO BIDCC Qty: 0 RF: 0 simvastatin 20 MG tablet 20 mg PO HS Qty: 0 RF: 0 aspirin 81 MG tablet,chewable 81 mg PO QDAY Qty: 0 RF: 0 insulin NPH and regular human [Humulin 70/30 U-100 Insulin] 100 unit/mL (70-30) Suspension 40 unit SUBCUT BIDWM RF: 0 Provider Discharge Instructions Diet: Carb-consistent/Diabetic Skin/Wound/Dressing Care Dressing: Keep dressing dry and intact. Discharge Data Attending Provider: Otilio Beth Admit Date/Time: 06/08/18 22:36 Quality VTE Deep Vein Thrombosis/Pulmonary Embolism Present on Admission: No
[2018-06-11 07:50] VITALS: BP 149/89; PULSE 70; RESP 16; TEMP 36.4; O2SAT 95
[2018-06-11] MEDS: METFORMIN HCL 500 MG TABLET PO (08:54)
[2018-06-11] MEDS: ASPIRIN 81 MG TAB PO (08:54)
[2018-06-11] MEDS: INSULIN NPH/REG 70-30 100 UNIT/ML 3ML VIAL 40 UNIT SUBCUT (08:54)
[2018-06-11] MEDS: DOCUSATE 100 MG CAPSULE PO (08:54)
--- NOTE | 2018-06-11 09:20 | PC.NURSE ---
discharge note Pt is a&o able to make needs known, reviewed d/c instructions with pt at bedside, reviewed s/sx infection, follow up with pcp in 1 week, if signs worsen be seen immediately, reviewed s/sx of stroke, reviewed medications with last dose, reviewed new abx script and that he needs to have it filled. pt ambulated to emergency exit with this rn for casi loretta to catch the [id number]. anwsered all questions and concerns.
--- NOTE | 2018-06-11 15:46 | PM.PN.1 ---
Subjective Date Patient Seen: 06/11/18 Interval history: No complaints. Patient is ready for discharge home. [place] am ferry Exam Vital Signs (past 8 hours): - 06/11/18 07:50 Temperature 97.5 F L Pulse Rate 70 Respiratory Rate 16 Blood Pressure 149/89 H Pulse Oximetry 95 Oxygen Delivery Method Room Air Oxygen Flow Rate 0 Narrative Exam Narrative: Lungs: clear CV: RRR nl Sl S1 Right hand with dressing in place Ext: no edema Objective Labs Result Diagrams: 06/10/18 05:23 06/08/18 22:30 Assessment & Plan (1) Abscess of hand, right: Problem details: Discharge home on antibiotics as written Current visit: No Status: Acute (2) Cellulitis: Qualifiers: Laterality: right Site of cellulitis: extremity Site of cellulitis of extremity: upper extremity Site of cellulitis of trunk: Qualified Code(s): L03.113 - Cellulitis of right upper limb Current visit: No Status: Acute Quality VTE Deep Vein Thrombosis/Pulmonary Embolism Present on Admission: No
== END 2018-06-11 09:15 | disposition home or self-care (01) | DRG 983 ==
LOC: ED 22:33 → AC 22:37
PROVIDERS: Orthopaedic Surgery; Admitting Provider Internal Medicine; Emergency Provider Emergency Medicine; Visit Provider Internal Medicine
PROC: 0KBC0ZZ Excision of Right Hand Muscle, Open Approach (ICD-10-PCS; principal; 2018-06-09 16:00)
DX: L03.113 Cellulitis of right upper limb (principal); S61.431A Puncture wound without foreign body of right hand, initial encounter; E11.9 Type 2 diabetes mellitus without complications; E78.5 Hyperlipidemia, unspecified; Z79.4 Long term (current) use of insulin; B95.61 Methicillin susceptible Staphylococcus aureus infection as the cause of diseases classified elsewhere
CPT/HCPCS: 36415; 36591; 73130; 80048; 82962; 83605; 85025; 85027; 85651; 86140; 87070; 87075; 87077; 87147; 87186; 87205; 97161; 99282; 99284; J0690; J2405; J2704; J3010; J3370